=== PATIENT | male | born 1950 | race Hispanic/Latino ===

== ENCOUNTER → 2019-02-01 | Outpatient (CLI) | payer OTHER ==
[~2019-02-01] MED LIST: CANA300T PO; DOXY100C2 PO; FLUC200T8 PO; GLYB-228 PO; LISI10TA7 PO; REGADENOSON 0.4 MG/5 ML PF SYG IVP SCH; SAXA5TAB PO; TRAZ-187 PO
== END | disposition home or self-care (01) ==
LOC: SHCH 01-29 07:50
PROVIDERS: ATTEND Internal Medicine Cardiovascular Disease
DX: I25.9 Chronic ischemic heart disease, unspecified (principal); I25.10 Atherosclerotic heart disease of native coronary artery without angina pectoris
CPT/HCPCS: 78452; 93017; 96374; A9500 ×2; J2785